=== PATIENT | female | born 1955 | race Caucasian/White ===

== ENCOUNTER → 2016-05-20 | Outpatient (CLI) | payer OTHER ==
[~2016-05-20] MED LIST: PHENERGAN 25 MG25 M1 PO; ZOFRAN ODT4 MG PO
== END ==
LOC: MRI 09:46
DX: M75.101 Unspecified rotator cuff tear or rupture of right shoulder, not specified as traumatic (principal); M75.21 Bicipital tendinitis, right shoulder; M25.511 Pain in right shoulder; M19.011 Primary osteoarthritis, right shoulder; M77.9 Enthesopathy, unspecified

== ENCOUNTER → 2018-08-22 | Outpatient (CLI) | payer OTHER | LOC: ULTRA 15:08 | DX: D25.9 Leiomyoma of uterus, unspecified (principal); Z78.0 Asymptomatic menopausal state ==

== ENCOUNTER → 2019-12-26 | Outpatient (CLI) | payer OTHER | LOC: BC 12:14 → CAT 12:14 | PROVIDERS: ATTEND Nurse Practitioner | DX: Z12.31 Encounter for screening mammogram for malignant neoplasm of breast (principal) ==